=== PATIENT | male | born 1950 | race Caucasian/White ===

== ENCOUNTER 2021-03-20 19:54 | Emergency (ER) | payer MEDICARE, OTHER ==
[~2021-03-20 19:54] MED LIST: ALLEGRA ALLERG180 MG PO; ASPIRIN81 MG PO; CARTIA XT300 MG PO; FLOMAX 0.4 MG0.4 MG PO; FUROSEMIDE20 MG PO; IBUPROFEN600 MG PO; LOSARTAN POTASS50 MG PO; LOVENOX SY40 MG/0.4 SQ; METFORMIN HCL500 MG PO; NIACIN500 MG PO; NORCO 10-325 T1 EACH PO; NORCO 5-325 TA1 EACH PO; PANTOPRAZOLE SO40 MG PO; PRAVASTATIN SOD10 MG PO; VITAMIN C 500500 MG PO; [UNRECOGNIZED DRUG - OTHER] PO
== END 2021-03-20 22:19 | disposition home or self-care (01) ==
LOC: ER1 19:54
DX: S61.212A Laceration without foreign body of right middle finger without damage to nail, initial encounter (principal); Y92.009 Unspecified place in unspecified non-institutional (private) residence as the place of occurrence of the external cause; W23.0XXA Caught, crushed, jammed, or pinched between moving objects, initial encounter
CPT/HCPCS: 12002; 99283